=== PATIENT | female | born 1950 | race Caucasian/White ===

== ENCOUNTER 2019-06-20 16:13 | Emergency (ER) | payer MEDICARE, MEDICAID ==
[~2019-06-20] VITALS: Ht 160 cm; Wt 81.6 kg
--- NOTE | 2019-06-20 16:30 | NUR ---
Dr Tuttle at the bedside for MSE.
[2019-06-20] MEDS ORDERED: LEVO25TA9 PO (16:45)
[2019-06-20] MEDS ORDERED: MECLIZINE HCL 25 MG TABLET PO ONE (16:45)
[2019-06-20] MEDS ORDERED: VENL25TA5 PO (16:45)
[2019-06-20] MEDS ORDERED: LORA0.5T PO (16:45)
--- NOTE | 2019-06-20 17:35 | NUR ---
Patient discharged to home in stable conditon. Written and verbal after care instructions given. Patient verbalizes understanding of instructions. Pt left ER accompained by family w/ steady gait.
[2019-06-20 17:37] VITALS: BP 133/90
== END 2019-06-20 17:38 | disposition home or self-care (01) ==
LOC: ER 16:13
DX: R42 Dizziness and giddiness (principal); I45.81 Long QT syndrome; F32.9 Major depressive disorder, single episode, unspecified; F41.9 Anxiety disorder, unspecified; E03.9 Hypothyroidism, unspecified; Z90.49 Acquired absence of other specified parts of digestive tract; Z79.899 Other long term (current) drug therapy
CPT/HCPCS: 70450; 93005; A4663